=== PATIENT | male | born 1970 | race Caucasian/White ===

== ENCOUNTER 2023-04-01 11:56 | Emergency (ER) | payer SELFPAY ==
[~2023-04-01] VITALS: Ht 177.8 cm; Wt 68.0 kg
[2023-04-01] MEDS ORDERED: SODIUM CHLORIDE 0.9% 1,000 ML IV ONE (13:15)
[2023-04-01 13:26] LABS: BASOPHILS % 0.3 % (0.0-2.0); EOSINOPHILS % 0.3 % (0.0-5.0); HEMATOCRIT. 34.5 % (42.0-52.0); HEMOGLOBIN. 11.9 g/dL (14.0-18.0); LYMPHOCYTES % 17.5 % (20.0-50.0); MEAN CORPUSCULAR HEMOGLOBIN 32.3 pg (28.0-32.0); MEAN CORPUSCULAR VOLUME 93.6 fL (80.0-94.0); MONOCYTES % 5.6 % (2.0-8.0); NEUTROPHILS % 76.3 % (40.0-76.0); RED BLOOD CELL COUNT 3.69 mill/uL (4.7-6.1); RED CELL DISTRIBUTION WIDTH 15.1 % (11.6-14.6)
[2023-04-01 13:31] LABS: CHLORIDE 97 mEq/L (98-107)
[2023-04-01 13:53] LABS: ETHANOL BLOOD 373 mg/dL
[2023-04-01 13:55] LABS: MEAN PLATELET VOLUME 7.7 fl (7.4-10.4); PLATELET 46 x1000/uL (130-400)
[2023-04-01 13:56] LABS: PLATELET ESTIMATE MARKEDLY DECREASED
[2023-04-01 14:40] VITALS: BP 118/75
== END 2023-04-01 15:24 | disposition home or self-care (01) ==
LOC: ER 12:14
DX: R55 Syncope and collapse (principal); D69.6 Thrombocytopenia, unspecified; F10.129 Alcohol abuse with intoxication, unspecified; Y90.8 Blood alcohol level of 240 mg/100 ml or more; I10 Essential (primary) hypertension
CPT/HCPCS: 36415; 80053; 80320; 84484; 85025; 93005; 96360; 99284; J7030; G0480

== ENCOUNTER 2023-04-08 13:14 | Emergency (ER) | payer SELFPAY ==
[~2023-04-08] VITALS: Ht 167.6 cm; Wt 68.0 kg
[2023-04-08 15:19] LABS: BASOPHILS % 0.2 % (0.0-2.0); EOSINOPHILS % 0.2 % (0.0-5.0); HEMATOCRIT. 37.7 % (42.0-52.0); HEMOGLOBIN. 12.7 g/dL (14.0-18.0); LYMPHOCYTES % 12.8 % (20.0-50.0); MEAN CORPUSCULAR HEMOGLOBIN 31.6 pg (28.0-32.0); MEAN PLATELET VOLUME 6.8 fl (7.4-10.4); MONOCYTES % 8.6 % (2.0-8.0); NEUTROPHILS % 78.2 % (40.0-76.0); PLATELET 66 x1000/uL (130-400); RED BLOOD CELL COUNT 4.01 mill/uL (4.7-6.1); RED CELL DISTRIBUTION WIDTH 15.1 % (11.6-14.6)
[2023-04-08 15:28] LABS: CHLORIDE 97 mEq/L (98-107)
[2023-04-08 15:42] LABS: ETHANOL BLOOD 531 mg/dL
[2023-04-08 20:24] VITALS: BP 124/87
== END 2023-04-08 21:05 | disposition home or self-care (01) ==
LOC: ER 13:55
DX: F10.129 Alcohol abuse with intoxication, unspecified (principal); I10 Essential (primary) hypertension; Y90.8 Blood alcohol level of 240 mg/100 ml or more
CPT/HCPCS: 36415; 80053; 80320; 85025; 99283; G0480